=== PATIENT | female | born 1965 | race Caucasian/White ===

== ENCOUNTER 2023-01-30 15:37 | Emergency (ER) | payer OTHER, SELFPAY ==
[2023-01-30 15:41] VITALS: BP 125/76; PULSE 54; RESP 18; TEMP 36.8; O2SAT 100; BMI 35.3
--- NOTE | 2023-01-30 16:01 | ED_ITS ---
HPI - General Adult General Time Seen by Provider: 16:02 Date Seen: 01/30/23 Chief complaint: Nausea/Vomiting Stated complaint: Nausea, Vomiting Time Seen by Provider: 01/30/23 15:52 Source: patient Mode of arrival: ambulatory Limitations: no limitations History of Present Illness HPI narrative: Patient is a 58-year-old female has had history of mild dehydration in the past, she ate at [facility] in [place] couple of days ago and subsequently felt sick. She has been vomiting had some loose looser stool, she has had history of dehydration when she vomits and has tough time getting over this. No chest pain, breathing problem, fevers, chills, COVID symptoms. She took a COVID test today and was negative. She has had no other specific problems other than hypothyroidism, and a facial injury for which she takes medicine for chronic facial pain. Related Data Home Medications Medication Instructions Recorded Confirmed amitriptyline 100 mg tablet 100 mg PO QPM 01/30/23 01/30/23 bupropion HCl 100 mg tablet,12 hr PO 01/30/23 sustained-release ciclopirox 0.77 % topical gel topical 01/30/23 clobetasol 0.05 % scalp solution topical DAILY 01/30/23 gabapentin 600 mg tablet 600 mg PO 3XD 01/30/23 01/30/23 levothyroxine 125 mcg tablet 125 mcg PO DAILY 01/30/23 01/30/23 (Synthroid) lisinopril 10 mg tablet 10 mg PO DAILY 01/30/23 01/30/23 tizanidine 4 mg tablet 4 mg PO 3XD 01/30/23 01/30/23 Allergies Allergy/AdvReac Type Severity Reaction Status Date / Time erythromycin base Allergy Verified 01/30/23 15:46 ketorolac [From Toradol] Allergy Verified 01/30/23 15:46 NSAIDS (Non-Steroidal Allergy Verified 01/30/23 15:46 Anti-Inflamma Penicillins Allergy Verified 01/30/23 15:46 Review of Systems Status of ROS: Reports: 6 or more systems reviewed and unremarkable except as noted in History and below [facility] Social History Smoking Status: Never smoker Do you use any of these nicotine containing products: None Second hand tobacco smoke exposure: No How often do you have a drink containing alcohol: monthly or less How often do you have six or more drinks on one occasion: Never AUDIT-C Alcohol total score: 1 Non-prescribed substance use: denies use service: No Exam Narrative: Exam Narrative: Objective: Vital signs unremarkable HEENT shows dry mucous membranes in the mouth no facial asymmetry Neck is supple Pulse regular Abdomen soft benign nontender no masses or peritonitis Extremities good perfusion Skin warm and dry peripherally Const: Vital Signs, click to edit/add: Vital Signs - 24 hr 01/30/23 15:41 Temperature 98.2 F Pulse Rate [Right Pulse Oximeter] 54 L Respiratory Rate 18 Blood Pressure [Ri ght Upper Arm] 125/76 Pulse Oximetry 100 Oxygen Delivery Me thod Room Air Course Vital Signs Vital signs: Initial Vital Signs Temperature 98.2 F 01/30/23 15:41 Temperature Source Temporal Artery Scan 01/30/23 15:41 Pulse Rate 54 L 01/30/23 15:41 Respiratory Rate 18 01/30/23 15:41 Blood Pressure 125/76 01/30/23 15:41 Blood Pressure Mean 92 01/30/23 15:41 Blood Pressure Position Sitting 01/30/23 15:41 Pulse Oximetry 100 01/30/23 15:41 Oxygen Delivery Method Room Air 01/30/23 15:41 Vital Signs Temperature 98.2 F 01/30/23 15:41 Pulse Rate 54 L 01/30/23 15:41 Respiratory Rate 18 01/30/23 15:41 Blood Pressure 125/76 01/30/23 15:41 Pulse Oximetry 100 01/30/23 15:41 Oxygen Delivery Method Room Air 01/30/23 15:41 Temperature 98.2 F 01/30/23 15:41 Pulse Rate 54 L 01/30/23 15:41 Respiratory Rate 18 01/30/23 15:41 Blood Pressure 125/76 01/30/23 15:41 Pulse Oximetry 100 01/30/23 15:41 Oxygen Delivery Method Room Air 01/30/23 15:41 Medical Decision Making [facility] Narrative Medical decision making narrative: 58 year white female with the history of dehydration, with nausea vomiting, poss ibly food toxicity. At this point I think rehydration would be appropriate as well as check labs, anti emetic with Zofran and 0.5 of Ativan. Disposition pending her findings and lab studies. Addendum: The patient's lab studies are reassuring so far, her white count is just slightly elevated. She feels markedly better after IV fluid IV Ativan and Zofran. She feels ready to go home. I will review her labs as they return. For some reason they have been slow to return and the patient is ready to go at this point. I think rest light activity, fluids would be appropriate, Tylenol as needed, update regular doctor next 2-3 days as needed. Lab Data Labs: Lab Results 01/30/23 Range/Units 16:40 WBC 12.37 H (4.50-11.00) K/uL RBC 4.90 (4.00-5.20) m/uL Hgb 15.0 (12.0-16.0) gm/dL Hct 43.6 (33.0-51.0) % MCV 89 (80-100) fL MCH 31 (26-34) pg MCHC 34 (32-36) gm/dL RDW Coeff of Steffany 12.6 (11.5-15.5) % Plt Count 377 (140-440) K/uL Neut % (Auto) 80.3 H (42.0-72.0) % Lymph % (Auto) 11.2 L (20-44) % [place] % (Auto) 7.1 (0.0-11.0) % Eos % (Auto) 0.1 (0.0-7.0) % Baso % (Auto) 0.1 (0.0-3.0) % Neut # (Auto) 9.90 H (1.7-7.0) K/uL Lymph # (Auto) 1.40 (0.90-2.90) K/uL [place] # (Auto) 0.90 (0.00-0.90) K/UL Eos # (Auto) 0.00 (0.00-0.50) K/uL Baso # (Auto) 0.00 (0.00-0.30) K/uL Discharge Plan Discharge Clinical Impression: Gastroenteritis, Dehydration Patient Disposition: Home w/ Parent or Adult Condition: Improved Instructions: Gastroenteritis (ED), Acute Nausea and Vomiting (ED) Additional Instructions: Rest, light activity, fluids as tolerated, Tylenol as needed. Start with a liquid diet and add solids as you are able to tolerate. Update regular doctor over the next couple of days. Return sooner for problems or concerns. Activity Level: Light activity Discharge Diet: Full Liquid Diet Detail: May advance diet as tolerated Prescriptions: No Action gabapentin 600 mg tablet 600 mg PO 3XD tizanidine 4 mg tablet 4 mg PO 3XD bupropion HCl 100 mg tablet sustained-release 12 hr PO levothyroxine [Synthroid] 125 mcg tablet 125 mcg PO DAILY lisinopril 10 mg tablet 10 mg PO DAILY clobetasol 0.05 % solution topical DAILY amitriptyline 100 mg tablet 100 mg PO QPM ciclopirox 0.77 % gel topical Stand Alone Forms: [facility] Inst[facility]
[2023-01-30] MEDS: ONDANSETRON 2 MG/ML inj 4 MG IVP (16:42)
[2023-01-30] MEDS: 0.9 % SODIUM CHLORIDE 1000 ml 1,000 ML 1200 ML IV (16:42)
[2023-01-30] MEDS: LORazepam 2 MG/ML inj 0.5 MG IVP (16:43)
[2023-01-30 16:50] LABS: Basophils Percent Auto 0.1 % (0.0-3.0); Eosinophils Percent Auto 0.1 % (0.0-7.0); Hematocrit 43.6 % (33.0-51.0); Immature Granulocytes Pct Auto 1.2 %; Lymphocytes Percent Auto 11.2 % (20-44); Mean Corpuscular HGB Conc 34 gm/dL (32-36); Mean Corpuscular Hemoglobin 31 pg (26-34); Mean Corpuscular Volume 89 fL (80-100); Monocytes Percent Auto 7.1 % (0.0-11.0); Neutrophils Percent Auto 80.3 % (42.0-72.0); Platelet Count* 377 K/uL (140-440); RDW Coefficient of Variation % 12.6 % (11.5-15.5); White Blood Count* 12.37 K/uL (4.50-11.00)
[2023-01-30 17:11] LABS: Slide Review Reflex No
[2023-01-30 17:46] LABS: Albumin* 4.6 g/dL (3.3-5.0); Chloride* 101 mmol/L (96-114); Potassium* 3.6 mmol/L (3.6-5.1); Sodium* 134 mmol/L (135-149)
[2023-01-30 17:48] LABS: Amylase* 60 U/L (18-89); Creatinine* 0.5 mg/dL (0.5-1.5); Est. Creatinine Clearance* 93.67; Estimated Glomerular Filt Rate 109 ml/min
[2023-01-30 17:49] LABS: Alanine Aminotransferase* 24 U/L (4-35); Alkaline Phosphatase* 70 U/L (40-150); Aspartate Amino Transferase* 30 U/L (12-35); Bilirubin Direct* 0.2 mg/dL (0.0-0.5); Bilirubin Total* 0.7 mg/dL (0.1-1.5); Blood Urea Nitrogen* 16 mg/dL (7-30); Calcium* 9.5 mg/dL (8.4-10.6); Carbon Dioxide* 23 mmol/L (20-32); Glucose* 107 mg/dL (60-115); Total Protein* 7.7 g/dL (6.0-8.3)
[2023-01-30 17:51] VITALS: BP 122/70; PULSE 59; RESP 16; O2SAT 98
[2023-01-30 17:52] LABS: C Reactive Protein* 0.6 mg/dL (0.5-1.0)
== END 2023-01-30 17:52 | disposition home or self-care (01) ==
LOC: ED 16:43
PROVIDERS: Emergency Provider Family Medicine; PCP Physician Assistant Medical
DX: K52.9 Noninfective gastroenteritis and colitis, unspecified (principal); E86.0 Dehydration
CPT/HCPCS: 36415; 80048; 80076; 82150; 85025; 86140; 96374; 96375; 99283; 99284; J2060; J2405; J7030

== ENCOUNTER 2024-01-08 10:23 | Outpatient (CLI) | payer OTHER, SELFPAY | END 2024-01-08 10:24 | disposition home or self-care (01) | LOC: INJ CL 10:24 | PROVIDERS: PCP Physician Assistant Medical; Visit Provider Family Medicine | DX: M17.12 Unilateral primary osteoarthritis, left knee (principal); M25.562 Pain in left knee | CPT/HCPCS: 64454 ==

== ENCOUNTER 2024-01-22 11:51 | Outpatient (CLI) | payer OTHER, SELFPAY ==
--- NOTE | 2024-01-22 12:46 | W.ANESCHARGE ---
Anesthesia Charges Start Date/Time Anesthesia Start Date: 01/22/24 Anesthesia Start Time: 12:55 Stop Date/Time Anesthesia Stop Date: 01/22/24 Anesthesia Stop Time: 13:38
--- NOTE | 2024-01-22 13:46 | W.ANESCHARGE ---
Anesthesia Charges Start Date/Time Anesthesia Start Date: 01/22/24 Anesthesia Start Time: 12:55 Stop Date/Time Anesthesia Stop Date: 01/22/24 Anesthesia Stop Time: 13:38
== END 2024-01-22 11:52 | disposition home or self-care (01) ==
LOC: INJ CL 11:52
PROVIDERS: PCP Physician Assistant Medical; Visit Provider Family Medicine
DX: M17.12 Unilateral primary osteoarthritis, left knee (principal); M25.562 Pain in left knee
CPT/HCPCS: 01991; 64624; J2704